=== PATIENT | male | born 1945 | race Caucasian/White ===

== ENCOUNTER 2016-06-22 22:16 | Emergency (ER) | payer MEDICARE, OTHER ==
--- NOTE | ~2016-06-22 | ER ---
PATIENT'S NAME: CARTER ZAZUETA [facility] AGE: 71 Y [address] ROOM: [place] [address] LOCATION: ED ADMIT DATE: 06/22/2016 ER/Outpatient Report DISCHARGE DATE: 06/23/2016 FAMILY PHYSICIAN: Javier Ventura MD ATTENDING PHYSICIAN: Konrad Hall CHIEF COMPLAINT: Left arm pain and rash. HISTORY OF PRESENT ILLNESS: The patient states that he woke up this morning with a rash. He had taken some Benadryl earlier in the day and feels like the rash is improving. He has developed some reflux disease and then had some left arm pain. He always gets reflux whenever he gets a rash, but he never has the left arm pain. He has an extensive cardiac history with multiple angioplasty and 1 stent. He denies any chest pain or heaviness with this. The pain started at rest and has ultimately gone away. The rash is not particularly concerning to him. PAST MEDICAL HISTORY: Documented on the record and reviewed by me. SOCIAL HISTORY: Documented on the record and reviewed by me. MEDICATIONS: Documented on the record and reviewed by me. ALLERGIES: DOCUMENTED ON THE RECORD AND REVIEWED BY ME. REVIEW OF SYSTEMS: All systems reviewed and negative except as noted in the HPI. PHYSICAL EXAMINATION: VITAL SIGNS: Blood pressure 176/84, pulse 72, temperature is 100, SpO2 is 97% on room air. Pain 0/10. GENERAL: Age-appropriate male, in no obvious pain or distress. NEUROLOGIC: Awake and alert. GCS 15. No focal deficits. No asymmetry. HEENT: Normocephalic, atraumatic. Eyes are PERRL. Oropharynx is clear. NECK: Supple. Trachea is midline. CHEST: Heart is regular in rate and rhythm. No murmurs. LUNGS: Clear to auscultation bilaterally with no rhonchi, wheezes, or rales. ABDOMEN: Soft, nontender, and nondistended. No rebound or guarding. BACK: Nontender to palpation. EXTREMITIES: Normal to inspection and palpation. No obvious injuries or PATIENT'S NAME: CARTER ZAZUETA [facility] AGE: 71 Y [address] ROOM: [place], [place] [id number] LOCATION: ED ADMIT DATE: 06/22/2016 ER/Outpatient Report DISCHARGE DATE: 06/23/2016 FAMILY PHYSICIAN: Javier Ventura MD ATTENDING PHYSICIAN: Konrad Hall abnormalities of the left shoulder. SKIN: Warm, dry, and intact. There is an erythematous rash, most prominent across the chest and extremities. No pustules appreciated. LABORATORY DATA AND X-RAYS: Chest x-ray: Unremarkable per my read. Labs: CMS is notable for elevated glucose of 137, magnesium 2.1. Troponin below threshold, CK-MB is 1.7, repeat was not obtained at the patient's preference. CBC is unremarkable. INR is 1.0. EKG is grossly unchanged compared to prior EKG from 12/20/2012 and 07/03/2012. Some baseline artifact, today. No significant morphologic changes with first-degree heart block. IMPRESSION: 1. Left arm pain. 2. Rash. EMERGENCY DEPARTMENT COURSE: The patient was seen and evaluated. Symptom presentation is atypical, but mildly concerning, particularly given the patient's cardiac history. I suggested a second set of enzymes and the patient declined that evaluation. At this time, he does not have any immediate evidence of cardiac ischemia. I instructed him to come back to the emergency department immediately, if worse. Not consistent with pneumonia, dissection, or PE. The patient was acceptable to this plan and left in good condition. Return immediately, if worse; otherwise, follow up with primary care physician this week. KONRAD HALL MD /modl /[id number] d: 06/23/16612 t: 07/02/1604, OUTPATIENT REPORT
[~2016-06-22 22:16] MED LIST: ANACIN 400-321 EACH; ASPIRIN EC81 MG; ASPIRIN LO-DOSE81 MG PO; ASPIRIN325 MG PO; CLINDAMYCIN HC300 MG PO; COQ-10100 MG PO; COZAAR50 MG PO; CPAP INH; DEXILANT60 MG PO; DILAUDID 2MG(HYD2 MG PO; FISH OIL 1,2001 EACH PO; LIPITOR10 MG PO; PRILOSEC20 MG PO; VITAMIN D31000 UNI1 PO
[2016-06-22 23:10] LABS: BASOPHIL % 0.1 %; EOSINOPHIL # 0.2 K/uL (0.0-0.5); EOSINOPHIL % 2.7 %; HEMOGLOBIN 13.6 g/dL (11.0-16.0); IMMATURE GRANULOCYTE % 0.3 %; LYMPHOCYTE # 1.9 K/uL (0.8-4.0); LYMPHOCYTE % 25.2 %; MCH 31.3 pg (27.0-34.0); MCHC 34.9 gm/dL (32.0-36.5); MCV 89.7 fl (83.0-98.0); MONOCYTE # 0.4 K/uL (0.0-1.0); MONOCYTE % 5.6 %; MPV 11.1 fl (9.4-12.4); NEUTROPHIL # (ANC) 5.1 K/uL (1.4-9.0); NEUTROPHIL % 66.1 %; NRBC % 0 /100WBC (0-0.00); PLATELET COUNT 148 K/uL (150-450); RBC 4.35 M/uL (3.50-5.50); RDW-CV 12.2 % (11.9-14.6); WBC 7.7 K/uL (4.0-11.0)
[2016-06-22 23:19] LABS: PROTIME 10.3 SECONDS (9.6-11.1); PTT 26 SECONDS (25-32)
[2016-06-22 23:29] LABS: ALBUMIN 3.5 gm/dL (3.5-5.0); ALK PHOS 68 IU/L (33-138); ALT 25 IU/L (12-78); ANION GAP 14.8 (10.0-19.0); AST 17 IU/L (10-40); BLOOD UREA NITROGEN 15 mg/dL (6-24); CALCIUM 8.3 mg/dL (8.5-10.5); CHLORIDE 105 mMol/L (96-110); CO2 24 mMol/L (22-32); CPK 103 IU/L (35-332); ESTIMATED GFR (MDRD EQUATION) > 60; MAGNESIUM 2.1 mg/dL (1.3-2.6); POTASSIUM 3.8 mMol/L (3.7-5.1); SODIUM 140 mMol/L (135-145); TOTAL BILIRUBIN 0.4 mg/dL (0.0-1.5); TOTAL PROTEIN 6.2 g/dL (6.0-8.4)
[2016-09-19] MEDS ORDERED: TIMOPTIC XE 0.5%5 ML OPHTH (12:38)
[2016-09-19] MEDS ORDERED: PRILOSEC20 MG PO (12:40)
[2016-11-20] MEDS ORDERED: LINZESS145 MCG PO (10:37)
[2016-11-20] MEDS ORDERED: VITAMIN D400 UNI2 PO (10:38)
[2016-11-20] MEDS ORDERED: FISH OIL 1,0001 EACH PO (10:38)
== END 2016-06-23 00:02 | disposition disaster alternative care site (69) ==
LOC: GMED 22:16
PROVIDERS: Emergency Medicine
DX: M79.602 Pain in left arm (principal); R21 Rash and other nonspecific skin eruption

== ENCOUNTER → 2016-08-20 | Outpatient (CLI) | payer MEDICARE, OTHER ==
[~2016-08-20] MED LIST changes: +FISH OIL 1,0001 EACH PO; +LINZESS145 MCG PO; +TIMOPTIC XE 0.5%5 ML OPHTH; +VITAMIN D400 UNI2 PO
== END | disposition disaster alternative care site (69) ==
LOC: GRAD 13:39
DX: M54.5 Low back pain (principal); M47.896 Other spondylosis, lumbar region; M48.06 Spinal stenosis, lumbar region

== ENCOUNTER → 2016-09-25 | Outpatient (CLI) | payer MEDICARE, OTHER ==
[2016-09-25 13:55] LABS: BASOPHIL % 0.1 %; EOSINOPHIL # 0.2 K/uL (0.0-0.5); HEMATOCRIT 41.1 % (37.0-53.0); IMMATURE GRANULOCYTE % 0.3 %; LYMPHOCYTE # 1.8 K/uL (0.8-4.0); MCH 32.1 pg (27.0-34.0); MCHC 36.5 gm/dL (32.0-36.5); MONOCYTE # 0.4 K/uL (0.0-1.0); MONOCYTE % 5.7 %; MPV 11.3 fl (9.4-12.4); NEUTROPHIL # (ANC) 4.8 K/uL (1.4-9.0); NEUTROPHIL % 65.9 %; NRBC % 0 /100WBC (0-0.00); PLATELET COUNT 141 K/uL (150-450); RBC 4.67 M/uL (3.50-5.50); RDW-CV 11.9 % (11.9-14.6); WBC 7.3 K/uL (4.0-11.0)
[2016-09-25 14:01] LABS: INR - (THERAPEUTIC) 0.96 (0.92-1.07); PROTIME 10.1 SECONDS (9.8-11.4)
== END | disposition disaster alternative care site (69) ==
LOC: GOPD 09-19
PROVIDERS: Neurological Surgery
PROC: 3E0R33Z Introduction of Anti-inflammatory into Spinal Canal, Percutaneous Approach (ICD-10-PCS; principal; 2016-09-25)
PROC: 3E0R3BZ Introduction of Anesthetic Agent into Spinal Canal, Percutaneous Approach (ICD-10-PCS; 2016-09-25)
DX: M54.5 Low back pain (principal); M79.605 Pain in left leg; M79.604 Pain in right leg; M51.36 Other intervertebral disc degeneration, lumbar region; M48.06 Spinal stenosis, lumbar region; M47.26 Other spondylosis with radiculopathy, lumbar region
CPT/HCPCS: J1040

== ENCOUNTER → 2016-11-27 | Outpatient (CLI) | payer MEDICARE, OTHER | LOC: GOPD 11-20 | DX: M48.06 Spinal stenosis, lumbar region (principal); M51.36 Other intervertebral disc degeneration, lumbar region; I25.10 Atherosclerotic heart disease of native coronary artery without angina pectoris; I10 Essential (primary) hypertension | CPT/HCPCS: J1040 ==

== ENCOUNTER → 2016-12-10 | Outpatient (CLI) | payer MEDICARE, OTHER | END | disposition disaster alternative care site (69) | LOC: GRAD 09:21 | DX: M25.551 Pain in right hip (principal); M16.12 Unilateral primary osteoarthritis, left hip; M47.896 Other spondylosis, lumbar region; M47.897 Other spondylosis, lumbosacral region; Z96.641 Presence of right artificial hip joint ==